=== PATIENT | male | born 1975 | race Caucasian/White ===

== ENCOUNTER 2016-12-31 08:31 | Emergency (ER) | payer BC ==
[2016-12-31 08:46] VITALS: BP 126/84
--- NOTE | 2016-12-31 09:05 | UC ---
Back Pain HPI - HPI Summary HPI Summary: complaint of lower back pain this morning woke up with lower back pain on the left side pain is throbbing aching non radiating constant pain sitting and then getting up makes the pain worse nothing makes it lessen denies any trauma, lifting new exercises denies fever , weight loss , dysuria, incontinence family hx of kidney disease complaint of LLQ pain for approx 4 months that resolved 2 weeks ago- denies diarrhea, blood in stool - History of Current Complaint Chief Complaint: UCBackPain Stated Complaint: LOWER BACK PAIN Time Seen by Provider: 12/31/16 08:41 Hx Obtained From: Patient Character: Aching, Throbbing Aggravating: Movement, Lifting Alleviating: Nothing - Allergies/Home Medications Allergies/Adverse Reactions: Allergies Allergy/AdvReac Type Severity Reaction Status Date / Time No Known Allergies Allergy Verified 12/31/16 08:39 PMH/Surg Hx/FS Hx/Imm Hx Previously Healthy: Yes Respiratory History Of: Reports: Asthma - childhood - Surgical History Surgical History: None - Family History Known Family History: Positive: Renal Disease - mother, brother, Negative: Cardiac Disease, Hypertension, Diabetes - Social History Occupation: Employed Full-time Lives: With Family Alcohol Use: None Substance Use Type: None Smoking Status (MU): Never Smoked Tobacco - Immunization History Most Recent Influenza Vaccination: NONE Most Recent Tetanus Shot: UNKNOWN Most Recent Pneumonia Vaccination: N/A Review of Systems Constitutional: Negative Skin: Negative Eyes: Negative ENT: Negative Respiratory: Negative Cardiovascular: Negative Gastrointestinal: Negative Genitourinary: Negative Motor: Negative Neurovascular: Negative Musculoskeletal: Other: - lower bcak pain Neurological: Negative Psychological: Negative All Other Systems Reviewed And Are Negative: Yes Physical Exam Triage Information Reviewed: Yes Appearance: No Pain Distress, Well-Nourished, Obese Vital Signs: Initial Vital Signs Temp 98.4 F 12/31/16 08:40 Pulse 91 12/31/16 08:40 Resp 18 12/31/16 08:40 BP 126/84 12/31/16 08:40 Pulse Ox 96 12/31/16 08:40 Vital Signs Reviewed: Yes Eyes: Positive: Conjunctiva Clear ENT: Positive: Pharynx normal, TMs normal Neck: Positive: No Lymphadenopathy Respiratory: Positive: Lungs clear, Normal breath sounds, No respiratory distress, No accessory muscle use Cardiovascular: Positive: RRR, No Murmur, Pulses Normal Abdomen Description: Positive: Nontender, No Organomegaly, Soft, Distended. Negative: CVA Tenderness (R), CVA Tenderness (L), Guarding Bowel Sounds: Positive: Present Musculoskeletal: Positive: ROM Limited @, Other: - Spine have no noted deformities or signs of inflammation. Curvature of thoracic, and lumbar spine are within normal limits. Bony features of shoulders and hips are of equal height bilaterally. Posture is upright, and gait is smooth and normal. Spinous processes of T1-L5 palpable, midline, and non-tender; No step-offs. Back left lumbar paraspinal tenderness. Patient flexes forward with an increase in pain . Lateral bending to the right causes discomfort when bending to the right side. Neurological: Positive: Alert, Other: - DTR intact, negative SLR Psychological Exam: Normal Skin Exam: Normal Back Pain Course/Dx - Course Course Of Treatment: exam completed- musculoskeletal pain - negative UA. no red flags to warrant inaging. will start muscle relaxer, NSAIDS and refer to PT for further evaluation and treatment. discussed at length improtance of prmiary care and need to establich PCP for medical care- family hx of kidney disease and chronic abdominal pain in the past - Differential Dx/Diagnosis Differential Diagnosis/HQI/PQRI: Herniated Disc, Strain, Sprain Provider Diagnoses: lower back pain Discharge - Discharge Plan Condition: Stable Disposition: HOME Prescriptions: Cyclobenzaprine TAB* [Flexeril 10 MG TAB*] 10 mg PO BEDTIME #7 tab Ibuprofen TAB* [Motrin TAB* 800 MG] 800 mg PO Q8H #30 tab Patient Education Materials: Low Back Strain (ED) Referrals: [facility] [place] [facility] [Outside] Additional Instructions: Start flexeril as directed. Do not drink alcohol or drive while taking flexeril. Please call physical therapy for further evaluation and treatment. Take ibuprofen for fever or pain. Increase fluids and rest. Please review your discharge instructions. If your symptoms do not improve please call your primary care provider or return to urgent care. Your blood pressure is pre-hypertensive reading. Please contact your primary care provider within 1 day -4 weeks for further evaluation.
== END 2016-12-31 09:39 | disposition home or self-care (01) ==
LOC: UCCORT 08:31
DX: M54.5 Low back pain (principal); E66.9 Obesity, unspecified; Z68.37 Body mass index [BMI] 37.0-37.9, adult
CPT/HCPCS: 81003; 99202; G0463